=== PATIENT | female | born 1960 | race Hispanic/Latino ===

== ENCOUNTER 2016-05-16 14:21 | Day surgery (SDC) | payer OTHER, MEDICARE ==
[~2016-05-16] VITALS: Ht 142.2 cm; Wt 52.6 kg
[~2016-05-16 14:21] MED LIST: ACTOS15 MG PO; AMLODIPINE BESYL5 MG PO; AMLODIPINE5 MG PO; AMOXICILLIN500 MG OR; ANTI-FUNGAL12 TOP; ASPIRIN LOW DOS81 M2 PO; ATENOLOL25 MG PO; BACLOFEN10 MG PO; CIPR1 OR; CIPRO500 MG OR; CIPROFLOXACN0.3 % OD; CIPROFLOXACN500 MG PO; CLEOCIN300 MG OR; CORTISPORIN OP7.5 ML OD; DIABETA5 MG PO; DILAUDID2 MG PO; FIORICET PO; GENTAMICIN SULF5 ML OD; GLUCOTROL EXTE2.5 M1 PO; GLYBURIDE5 MG PO; HYDROCHLOROT12.5 MG PO; LANTUS SOLOSTAR SC; LEVAQUIN500 MG PO; LISINOPRIL10 MG PO; LISINOPRIL5 MG PO; LORTAB 10 OR; LORTAB 5 OR; LOSARTAN POT50 MG PO; Levaquin PO; METFORMIN1000 MG PO; NAPROXEN SOD550 MG OR; OCUFLOX0.3 % OP; OMEPRAZOLE20 MG PO; ONDANSETRON4 MG PO; PHENERGAN25 M1 PR; PHENERGAN25 MG/TAB PO; POLYSPORIN3.5 GM OP; ROBITUSSIN AC10 ML PO; SIMVASTATIN20 MG PO; SYSTANE OP; TRAMADOL HCL50 MG PO; ULTRAM50 M1 PO; ZITHROMAX250 MG PO; ZOFRAN ODT4 MG SL; ZOFRAN4 MG/TAB PO; [UNRECOGNIZED DRUG - CODE] OP
[2016-05-16 17:40] VITALS: BP 186/73
== END 2016-05-16 17:30 | disposition home or self-care (01) | DRG 395 ==
LOC: ENDO 14:21
PROVIDERS: ATTEND Internal Medicine Gastroenterology
PROC: 0DJD8ZZ Inspection of Lower Intestinal Tract, Via Natural or Artificial Opening Endoscopic (ICD-10-PCS; principal; 2016-05-16)
DX: K64.4 Residual hemorrhoidal skin tags (principal); I10 Essential (primary) hypertension; K64.8 Other hemorrhoids; R11.2 Nausea with vomiting, unspecified; K21.9 Gastro-esophageal reflux disease without esophagitis; R10.13 Epigastric pain; E11.9 Type 2 diabetes mellitus without complications; E78.00 Pure hypercholesterolemia, unspecified

== ENCOUNTER 2017-12-21 19:53 | Emergency (ER) | payer BC, MEDICARE ==
[~2017-12-21] VITALS: Ht 142.2 cm; Wt 51.6 kg
[2017-12-21 21:01] LABS: HEMOGLOBIN 12.4 g/dl (12.0-16.0); IMMATURE GRANULOCYTES 0.3 % (0.0-5.0); MEAN CORPUSCULAR HGB 30.3 pG CALC (26.0-32.0); MEAN CORPUSCULAR HGB CONC 34.4 g/L CALC (32.0-36.0); NEUT# 7.91 thou/uL (2.00-7.15); RED BLOOD COUNT 4.09 mill/uL (4.20-5.60); RED CELL DISTRI WIDTH 12.8 % (11.5-15.5)
[2017-12-21 21:16] LABS: ALBUMIN 3.7 g/dL (3.2-5.0); BILIRUBIN, TOTAL 0.4 mg/dL (0.0-1.4); CREATININE 1.8 mg/dL (0.5-1.0); TOTAL PROTEIN 7.3 g/dL (6.3-8.2)
[2017-12-21 21:20] LABS: POTASSIUM 4.4 mmol/l (3.5-5.1)
[2017-12-21 21:39] LABS: AMYLASE 98 u/l (30-110); LIPASE 83 u/l (23-300)
[2017-12-21] MEDS ORDERED: ZOFRAN ODT4 MG PO (21:41)
[2017-12-21] MEDS ORDERED: CLEOCIN300 MG PO (21:41)
[2017-12-21] MEDS ORDERED: LORTAB 1010 MG PO (21:41)
[2017-12-21 22:11] VITALS: BP 178/90
== END 2017-12-21 22:11 | disposition home or self-care (01) | DRG 159 ==
LOC: ED 19:53
PROVIDERS: Emergency Medicine
DX: K04.7 Periapical abscess without sinus (principal); K08.89 Other specified disorders of teeth and supporting structures; R22.0 Localized swelling, mass and lump, head

== ENCOUNTER 2018-01-10 15:32 | Emergency (ER) | payer MEDICARE, BC ==
[~2018-01-10] VITALS: Ht 142.2 cm; Wt 52.3 kg
[~2018-01-10 15:32] MED LIST changes: +CLEOCIN300 MG PO; +LORTAB 1010 MG PO; +ZOFRAN ODT4 MG PO
[2018-01-10] MEDS ORDERED: OMEPRAZOLE10 MG PO (15:49)
[2018-01-10] MEDS ORDERED: FIORICET PO (15:50)
[2018-01-10] MEDS ORDERED: RANITIDINE150 M1 PO (15:51)
[2018-01-10] MEDS ORDERED: LOSARTAN POT50 MG PO (15:51)
[2018-01-10] MEDS ORDERED: LEVOTHYROXIN75 MCG PO (15:52)
[2018-01-10] MEDS ORDERED: TOBRADEX 2.5 ML OP (15:53)
[2018-01-10] MEDS ORDERED: INSULIN (15:54)
[2018-01-10 16:50] LABS: URINE BILIRUBIN - DIPSTICK NEGATIVE (NEGATIVE); URINE BLOOD DIPSTICK LARGE (NEGATIVE); URINE COLOR YELLOW; URINE GLUCOSE - DIPSTICK 100 mg/dL (NEGATIVE); URINE KETONE NEGATIVE (NEGATIVE); URINE NITRITE - DIPSTICK NEGATIVE (Negative); URINE PROTEIN - DIPSTICK >=300 mg/dL (NEG-TRACE); URINE SPECIFIC GRAVITY 1.025; URINE UROBILINOGEN - DIPSTICK 0.2 E.U./dL (0.2)
[2018-01-10 16:51] LABS: HEMATOCRIT 38.2 % (37.0-47.0); HEMOGLOBIN 13.5 g/dl (12.0-16.0); IMMATURE GRANULOCYTES 0.4 % (0.0-5.0); MEAN CELL VOLUME 86.6 fL CALC (80.0-100.0); MEAN CORPUSCULAR HGB 30.6 pG CALC (26.0-32.0); MEAN CORPUSCULAR HGB CONC 35.3 g/L CALC (32.0-36.0); NEUT# 9.55 thou/uL (2.00-7.15); RED BLOOD COUNT 4.41 mill/uL (4.20-5.60); RED CELL DISTRI WIDTH 13.2 % (11.5-15.5)
[2018-01-10 16:53] LABS: URINE CLARITY TURBID; URINE LEUK ESTERASE SMALL (NEGATIVE)
[2018-01-10 16:59] LABS: ALKALINE PHOSPHATASE 129 u/l (38-126); ANION GAP 15 (6-22 (CALC)); BILIRUBIN, TOTAL 0.7 mg/dL (0.0-1.4); BUN 31 mg/dL (7-17); BUN/CREATININE RATIO 17 (12-20 (CALC)); CARBON DIOXIDE 20 mmol/l (22-30); CHLORIDE 103 mmol/l (95-108); CREATININE 1.8 mg/dL (0.5-1.0); GFR 29 ML/MIN (>=60 (CALC)); GFR FOR AFR.AMER. 35 ML/MIN (>=60 (CALC)); LIPASE 211 u/l (23-300); POTASSIUM 4.5 mmol/l (3.5-5.1); SGOT/AST 36 u/l (14-36); SODIUM 134 mmol/l (137-146); TOTAL PROTEIN 8.2 g/dL (6.3-8.2)
[2018-01-10 17:08] LABS: URINE RBC TNTC RBC/hpf (0-5)
[2018-01-10 17:09] LABS: URINE BACTERIA MANY hpf
[2018-01-10 19:13] VITALS: BP 184/79
[2018-01-10] MEDS ORDERED: KEFLEX500 M1 PO (19:22)
== END 2018-01-10 19:36 | disposition home or self-care (01) ==
LOC: ED 15:32
PROVIDERS: Emergency Medicine
DX: N39.0 Urinary tract infection, site not specified (principal); B96.20 Unspecified Escherichia coli [E. coli] as the cause of diseases classified elsewhere; R10.13 Epigastric pain; I10 Essential (primary) hypertension; E11.9 Type 2 diabetes mellitus without complications; K21.9 Gastro-esophageal reflux disease without esophagitis; G51.0 Bell's palsy; H54.40 Blindness, one eye, unspecified eye

== ENCOUNTER 2019-04-14 | Emergency (ER) | payer OTHER, MEDICARE ==
[~2019-04-14] MED LIST changes: +CLONIDINE0.1 MG PO; +ERGOCALCIF50000 UNIT PO; +INSULIN; +KEFLEX500 M1 PO; +LEVOTHYROXIN75 MCG PO; +LIPITOR20 MG PO; +NIFEDIPINE ER90 M1 PO; +OMEPRAZOLE10 MG PO; +RANITIDINE150 M1 PO; +SODIUM BICARBI650 MG PO; +TOBRADEX 2.5 ML OP
[2019-04-14 19:50] LABS: HEMATOCRIT 27.9 % (37.0-47.0); HEMOGLOBIN 9.2 g/dl (12.0-16.0); IMMATURE GRANULOCYTES 0.5 % (0.0-5.0); MEAN CELL VOLUME 84.3 fL CALC (80.0-100.0); MEAN CORPUSCULAR HGB 27.8 pG CALC (26.0-32.0); NEUT# 7.01 thou/uL (2.00-7.15); RED BLOOD COUNT 3.31 mill/uL (4.20-5.60); RED CELL DISTRI WIDTH 13.8 % (11.5-15.5)
[2019-04-14 20:04] LABS: ALBUMIN 3.7 g/dL (3.2-5.0); ALKALINE PHOSPHATASE 172 u/l (38-126); AMYLASE 83 u/l (30-110); ANION GAP 16 (6-22 (CALC)); BUN 38 mg/dL (7-17); CARBON DIOXIDE 20 mmol/l (22-30); CHLORIDE 105 mmol/l (95-108); LIPASE 81 u/l (23-300); POTASSIUM 4.6 mmol/l (3.5-5.1); SGOT/AST 40 u/l (14-36); SODIUM 137 mmol/l (137-146); TOTAL PROTEIN 7.5 g/dL (6.3-8.2)
[2019-04-14 20:08] LABS: BILIRUBIN, TOTAL 0.3 mg/dL (0.0-1.4); BUN/CREATININE RATIO 5 (12-20 (CALC)); GFR 6 ML/MIN (>=60 (CALC)); GFR FOR AFR.AMER. 7 ML/MIN (>=60 (CALC))
[2019-04-14 20:13] LABS: MYOGLOBIN 221 ng/mL (0 - 62)
[2019-04-14 22:17] LABS: URINE BILIRUBIN - DIPSTICK NEGATIVE (NEGATIVE); URINE BLOOD DIPSTICK SMALL (NEGATIVE); URINE CLARITY CLEAR; URINE COLOR YELLOW; URINE GLUCOSE - DIPSTICK 250 mg/dL (NEGATIVE); URINE KETONE NEGATIVE (NEGATIVE); URINE LEUK ESTERASE NEGATIVE (Negative); URINE NITRITE - DIPSTICK NEGATIVE (Negative); URINE PROTEIN - DIPSTICK >=300 mg/dL (NEG-TRACE); URINE SPECIFIC GRAVITY 1.025; URINE UROBILINOGEN - DIPSTICK 0.2 E.U./dL (0.2)
[2019-04-14 22:20] LABS: URINE SQUAMOUS EPITHELIAL CELL FEW EPI/hpf (0-FEW); URINE WBC 0-2 WBC/hpf (0-5)
== END 2019-04-15 05:05 | DRG 684 ==
PROVIDERS: Emergency Medicine
DX: N17.9 Acute kidney failure, unspecified (principal); I16.0 Hypertensive urgency; I12.9 Hypertensive chronic kidney disease with stage 1 through stage 4 chronic kidney disease, or unspecified chronic kidney disease; N18.9 Chronic kidney disease, unspecified; R11.10 Vomiting, unspecified; E11.9 Type 2 diabetes mellitus without complications; G51.0 Bell's palsy; Z79.4 Long term (current) use of insulin

== ENCOUNTER 2019-05-29 | Emergency (ER) | payer OTHER, MEDICARE ==
[2019-05-29] MEDS ORDERED: PROTONIX40 MG PO (15:07)
[2019-05-29] MEDS ORDERED: METOPROL TAR25 MG PO (15:07)
[2019-05-29] MEDS ORDERED: LASIX 40 MG TAB40 MG PO (15:08)
[2019-05-29 15:43] LABS: IMMATURE GRANULOCYTES 0.2 % (0.0-5.0); MEAN CELL VOLUME 88.5 fL CALC (80.0-100.0); MEAN CORPUSCULAR HGB 29.2 pG CALC (26.0-32.0); NEUT# 7.61 thou/uL (2.00-7.15); RED BLOOD COUNT 4.08 mill/uL (4.20-5.60); RED CELL DISTRI WIDTH 15.7 % (11.5-15.5)
[2019-05-29 15:46] LABS: HEMATOCRIT 36.1 % (37.0-47.0); HEMOGLOBIN 11.9 g/dl (12.0-16.0)
[2019-05-29 15:56] LABS: ACT PARTIAL THROMBO TIME 26.1 SECONDS (20.0-32.5); INTERNATIONAL NORMALIZED RATIO 0.9 RATIO (0.7-1.3); PROTHROMBIN TIME 9.6 SECONDS (9.0-12.5)
[2019-05-29 16:06] LABS: ALBUMIN 2.9 g/dL (3.2-5.0); BILIRUBIN, TOTAL 0.6 mg/dL (0.0-1.4); POTASSIUM 5.8 mmol/l (3.5-5.1)
--- NOTE | 2019-05-31 12:45 | NUR ---
Covid results faxed to [phone].
== END 2019-05-29 19:25 | DRG 640 ==
PROVIDERS: Emergency Medicine
DX: E87.5 Hyperkalemia (principal); N18.6 End stage renal disease; I12.0 Hypertensive chronic kidney disease with stage 5 chronic kidney disease or end stage renal disease; I69.951 Hemiplegia and hemiparesis following unspecified cerebrovascular disease affecting right dominant side; E87.1 Hypo-osmolality and hyponatremia; R11.10 Vomiting, unspecified; E11.22 Type 2 diabetes mellitus with diabetic chronic kidney disease; Z99.2 Dependence on renal dialysis; H54.61 Unqualified visual loss, right eye, normal vision left eye; Z20.828 Contact with and (suspected) exposure to other viral communicable diseases
CPT/HCPCS: J1956

== ENCOUNTER 2019-06-17 | Emergency (ER) | payer OTHER, MEDICARE ==
[~2019-06-17] MED LIST changes: +LASIX 40 MG TAB40 MG PO; +METOPROL TAR25 MG PO; +PROTONIX40 MG PO
[2019-06-17] MEDS ORDERED: CLONIDINE0.2 MG PO (07:21)
[2019-06-17 07:24] LABS: HEMATOCRIT 41.9 % (37.0-47.0); HEMOGLOBIN 13.7 g/dl (12.0-16.0); IMMATURE GRANULOCYTES 0.3 % (0.0-5.0); MEAN CELL VOLUME 91.3 fL CALC (80.0-100.0); MEAN CORPUSCULAR HGB 29.8 pG CALC (26.0-32.0); MEAN CORPUSCULAR HGB CONC 32.7 g/dL CAL (32.0-36.0); NEUT# 7.01 thou/uL (2.00-7.15); RED BLOOD COUNT 4.59 mill/uL (4.20-5.60); RED CELL DISTRI WIDTH 15.5 % (11.5-15.5)
[2019-06-17] MEDS ORDERED: NOVOLIN N100 UNIT/1 IN (07:25)
[2019-06-17] MEDS ORDERED: TRAMADOL HYDROC50 M1 PO (07:27)
[2019-06-17 07:35] LABS: BILIRUBIN, TOTAL 0.5 mg/dL (0.0-1.4); CREATININE 4.2 mg/dL (0.5-1.0)
[2019-06-17 07:38] LABS: ALBUMIN 3.7 g/dL (3.2-5.0); POTASSIUM 5.6 mmol/l (3.5-5.1)
== END 2019-06-17 08:53 | DRG 291 ==
DX: I13.2 Hypertensive heart and chronic kidney disease with heart failure and with stage 5 chronic kidney disease, or end stage renal disease (principal); N18.6 End stage renal disease; N17.9 Acute kidney failure, unspecified; E11.22 Type 2 diabetes mellitus with diabetic chronic kidney disease; I50.9 Heart failure, unspecified; I16.0 Hypertensive urgency; R07.9 Chest pain, unspecified; Z99.2 Dependence on renal dialysis; Z79.4 Long term (current) use of insulin

== ENCOUNTER 2019-07-03 00:53 | Emergency (ER) | payer OTHER, MEDICARE ==
[~2019-07-03 00:53] MED LIST changes: +CLONIDINE0.2 MG PO; +NOVOLIN N100 UNIT/1 IN; +TRAMADOL HYDROC50 M1 PO
[2019-07-03 01:45] LABS: HEMATOCRIT 40.6 % (37.0-47.0); IMMATURE GRANULOCYTES 0.2 % (0.0-5.0); MEAN CORPUSCULAR HGB 28.8 pG CALC (26.0-32.0); NEUT# 5.6 thou/uL (2.00-7.15); RED BLOOD COUNT 4.51 mill/uL (4.20-5.60); RED CELL DISTRI WIDTH 14.1 % (11.5-15.5)
[2019-07-03 01:55] LABS: ALBUMIN 3.7 g/dL (3.2-5.0); BILIRUBIN, TOTAL 0.5 mg/dL (0.0-1.4); CREATININE 3.9 mg/dL (0.5-1.0); POTASSIUM 4.8 mmol/l (3.5-5.1); TOTAL PROTEIN 7.1 g/dL (6.3-8.2)
[2019-07-03 06:25] VITALS: BP 166/72
== END 2019-07-03 06:25 | DRG 683 ==
LOC: ED 00:53
PROVIDERS: Family Medicine
DX: N17.9 Acute kidney failure, unspecified (principal); I12.0 Hypertensive chronic kidney disease with stage 5 chronic kidney disease or end stage renal disease; E11.22 Type 2 diabetes mellitus with diabetic chronic kidney disease; N18.6 End stage renal disease; Z99.2 Dependence on renal dialysis; Z79.4 Long term (current) use of insulin

== ENCOUNTER 2019-07-13 00:18 | Emergency (ER) | payer OTHER, MEDICARE ==
[2019-07-13 01:12] LABS: HEMATOCRIT 40.8 % (37.0-47.0); HEMOGLOBIN 13.2 g/dl (12.0-16.0); IMMATURE GRANULOCYTES 0.3 % (0.0-5.0); MEAN CELL VOLUME 90.1 fL CALC (80.0-100.0); MEAN CORPUSCULAR HGB 29.1 pG CALC (26.0-32.0); MEAN CORPUSCULAR HGB CONC 32.4 g/dL CAL (32.0-36.0); NEUT# 4.78 thou/uL (2.00-7.15); RED BLOOD COUNT 4.53 mill/uL (4.20-5.60); RED CELL DISTRI WIDTH 13.9 % (11.5-15.5)
[2019-07-13 01:18] LABS: URINE BILIRUBIN - DIPSTICK NEGATIVE (NEGATIVE); URINE BLOOD DIPSTICK LARGE (NEGATIVE); URINE COLOR YELLOW; URINE GLUCOSE - DIPSTICK 250 mg/dL (NEGATIVE); URINE KETONE NEGATIVE (NEGATIVE); URINE NITRITE - DIPSTICK NEGATIVE (Negative); URINE PROTEIN - DIPSTICK >=300 mg/dL (NEG-TRACE); URINE UROBILINOGEN - DIPSTICK 0.2 E.U./dL (0.2)
[2019-07-13 01:27] LABS: ALBUMIN 4.2 g/dL (3.2-5.0); BILIRUBIN, TOTAL 0.7 mg/dL (0.0-1.4); CREATININE 4.8 mg/dL (0.5-1.0); POTASSIUM 4.9 mmol/l (3.5-5.1); TOTAL PROTEIN 7.7 g/dL (6.3-8.2)
[2019-07-13 01:33] LABS: URINE LEUK ESTERASE NEGATIVE (NEGATIVE)
[2019-07-13 01:35] LABS: URINE BACTERIA MODERATE hpf; URINE EPITHELIAL CELLS FEW EPI/hpf (0-FEW)
[2019-07-13 03:55] VITALS: BP 132/71
== END 2019-07-13 03:55 | DRG 193 ==
LOC: ED 00:18
PROVIDERS: Emergency Medicine
DX: J18.9 Pneumonia, unspecified organism (principal); N18.6 End stage renal disease; N39.0 Urinary tract infection, site not specified; I12.0 Hypertensive chronic kidney disease with stage 5 chronic kidney disease or end stage renal disease; E11.22 Type 2 diabetes mellitus with diabetic chronic kidney disease; G51.0 Bell's palsy; Z99.2 Dependence on renal dialysis; Z79.4 Long term (current) use of insulin; Z20.828 Contact with and (suspected) exposure to other viral communicable diseases

== ENCOUNTER 2019-09-24 03:37 | Emergency (ER) | payer OTHER, MEDICARE ==
[~2019-09-24] VITALS: Ht 142.2 cm; Wt 50.0 kg
[2019-09-24 04:20] LABS: IMMATURE GRANULOCYTES 0.2 % (0.0-5.0); MEAN CELL VOLUME 91.3 fL CALC (80.0-100.0); MEAN CORPUSCULAR HGB 28.1 pG CALC (26.0-32.0); MEAN CORPUSCULAR HGB CONC 30.8 g/dL CAL (32.0-36.0); NEUT# 6.54 thou/uL (2.00-7.15); RED BLOOD COUNT 3.45 mill/uL (4.20-5.60)
[2019-09-24 04:21] LABS: HEMATOCRIT 31.5 % (37.0-47.0); HEMOGLOBIN 9.7 g/dl (12.0-16.0)
[2019-09-24 04:35] LABS: POTASSIUM 4.8 mmol/l (3.5-5.1); TOTAL PROTEIN 7.5 g/dL (6.3-8.2)
[2019-09-24 04:43] LABS: BILIRUBIN, TOTAL 0.4 mg/dL (0.0-1.4); CREATININE 5.2 mg/dL (0.5-1.0)
[2019-09-24 05:13] VITALS: BP 208/102
== END 2019-09-24 05:34 | disposition home or self-care (01) | DRG 189 ==
LOC: ED 03:37
PROVIDERS: Family Medicine
DX: J81.1 Chronic pulmonary edema (principal); U07.1 COVID-19; N18.6 End stage renal disease; I12.0 Hypertensive chronic kidney disease with stage 5 chronic kidney disease or end stage renal disease; E11.22 Type 2 diabetes mellitus with diabetic chronic kidney disease; Z99.2 Dependence on renal dialysis; Z79.4 Long term (current) use of insulin; Z91.11 Patient's noncompliance with dietary regimen

== ENCOUNTER 2019-11-19 02:03 | Emergency (ER) | payer OTHER, MEDICARE ==
[~2019-11-19] VITALS: Ht 142.2 cm; Wt 60.0 kg
[2019-11-19 02:40] LABS: IMMATURE GRANULOCYTES 0.1 % (0.0-5.0); MEAN CELL VOLUME 91.4 fL CALC (80.0-100.0); MEAN CORPUSCULAR HGB 29.6 pG CALC (26.0-32.0); MEAN CORPUSCULAR HGB CONC 32.4 g/dL CAL (32.0-36.0); NEUT# 3.68 thou/uL (2.00-7.15); RED BLOOD COUNT 4.53 mill/uL (4.20-5.60); RED CELL DISTRI WIDTH 14.9 % (11.5-15.5)
[2019-11-19 02:41] LABS: HEMATOCRIT 41.4 % (37.0-47.0); HEMOGLOBIN 13.4 g/dl (12.0-16.0)
[2019-11-19 03:07] VITALS: BP 177/84
[2019-11-19 03:37] LABS: ALBUMIN 4.1 g/dL (3.2-5.0); BILIRUBIN, TOTAL 0.4 mg/dL (0.0-1.4); TOTAL PROTEIN 7.4 g/dL (6.3-8.2)
[2019-11-19 03:42] LABS: POTASSIUM 5.7 mmol/l (3.5-5.1)
[2019-11-19 03:43] LABS: CREATININE 5.8 mg/dL (0.5-1.0)
[2019-11-19 03:45] LABS: URINE BILIRUBIN - DIPSTICK NEGATIVE (NEGATIVE); URINE BLOOD DIPSTICK SMALL (NEGATIVE); URINE COLOR YELLOW; URINE GLUCOSE - DIPSTICK 500 mg/dL (NEGATIVE); URINE KETONE NEGATIVE (NEGATIVE); URINE LEUK ESTERASE NEGATIVE (NEGATIVE); URINE NITRITE - DIPSTICK NEGATIVE (Negative); URINE PROTEIN - DIPSTICK >=300 mg/dL (NEG-TRACE); URINE UROBILINOGEN - DIPSTICK 0.2 E.U./dL (0.2)
[2019-11-19 03:59] LABS: URINE BACTERIA FEW hpf; URINE SQUAMOUS EPITHELIAL CELL MANY EPI/hpf (0-FEW)
== END 2019-11-19 04:10 | disposition home or self-care (01) | DRG 189 ==
LOC: ED 02:03
PROVIDERS: Family Medicine
DX: J81.1 Chronic pulmonary edema (principal); N18.6 End stage renal disease; I12.0 Hypertensive chronic kidney disease with stage 5 chronic kidney disease or end stage renal disease; E11.22 Type 2 diabetes mellitus with diabetic chronic kidney disease; Z99.2 Dependence on renal dialysis; K21.9 Gastro-esophageal reflux disease without esophagitis; G51.0 Bell's palsy

== ENCOUNTER 2019-12-19 16:23 | Emergency (ER) | payer OTHER, MEDICARE ==
[~2019-12-19] VITALS: Ht 142.2 cm; Wt 52.3 kg
[2019-12-19] MEDS ORDERED: CLONIDINE0.1 MG PO (16:57)
[2019-12-19] MEDS ORDERED: FUROSEMIDE20 MG PO (16:57)
[2019-12-19] MEDS ORDERED: NIFEDIPINE60 MG PO (16:58)
[2019-12-19] MEDS ORDERED: ATORVASTATIN CA20 MG PO (16:59)
[2019-12-19] MEDS ORDERED: BUTALBITAL/ACET1 CA1 PO (16:59)
[2019-12-19] MEDS ORDERED: PROTONIX40 M2 PO (17:00)
[2019-12-19] MEDS ORDERED: LEVOTHYROXIN75 MCG PO (17:00)
[2019-12-19] MEDS ORDERED: METOPROL TAR25 MG PO (17:01)
[2019-12-19 17:24] LABS: HEMATOCRIT 37.2 % (37.0-47.0); IMMATURE GRANULOCYTES 0.3 % (0.0-5.0); MEAN CELL VOLUME 91.2 fL CALC (80.0-100.0); MEAN CORPUSCULAR HGB 29.4 pG CALC (26.0-32.0); MEAN CORPUSCULAR HGB CONC 32.3 g/dL CAL (32.0-36.0); NEUT# 7.03 thou/uL (2.00-7.15); RED BLOOD COUNT 4.08 mill/uL (4.20-5.60)
[2019-12-19 17:40] LABS: ALBUMIN 4.4 g/dL (3.2-5.0); BILIRUBIN, TOTAL 0.4 mg/dL (0.0-1.4); TOTAL PROTEIN 7.8 g/dL (6.3-8.2)
[2019-12-19 18:04] LABS: CREATININE 8.2 mg/dL (0.5-1.0); POTASSIUM 6.3 mmol/l (3.5-5.1)
[2019-12-19 20:15] VITALS: BP 117/58
== END 2019-12-19 20:15 | DRG 640 ==
LOC: ED 16:23
DX: E87.5 Hyperkalemia (principal); N18.6 End stage renal disease; I12.0 Hypertensive chronic kidney disease with stage 5 chronic kidney disease or end stage renal disease; E11.22 Type 2 diabetes mellitus with diabetic chronic kidney disease; Z99.2 Dependence on renal dialysis; K21.9 Gastro-esophageal reflux disease without esophagitis

== ENCOUNTER 2020-01-17 00:47 | Emergency (ER) | payer OTHER, MEDICARE ==
[~2020-01-17] VITALS: Ht 142.2 cm; Wt 54.0 kg
[~2020-01-17 00:47] MED LIST changes: +ATORVASTATIN CA20 MG PO; +BUTALBITAL/ACET1 CA1 PO; +FUROSEMIDE20 MG PO; +NIFEDIPINE60 MG PO; +PROTONIX40 M2 PO
[2020-01-17 01:31] LABS: HEMATOCRIT 33.3 % (37.0-47.0); HEMOGLOBIN 11.2 g/dl (12.0-16.0); IMMATURE GRANULOCYTES 0.3 % (0.0-5.0); MEAN CELL VOLUME 87.6 fL CALC (80.0-100.0); MEAN CORPUSCULAR HGB 29.5 pG CALC (26.0-32.0); MEAN CORPUSCULAR HGB CONC 33.6 g/dL CAL (32.0-36.0); NEUT# 7.58 thou/uL (2.00-7.15); RED BLOOD COUNT 3.8 mill/uL (4.20-5.60); RED CELL DISTRI WIDTH 13.4 % (11.5-15.5)
[2020-01-17 01:48] LABS: ALBUMIN 4.6 g/dL (3.2-5.0); BILIRUBIN, TOTAL 0.5 mg/dL (0.0-1.4); TOTAL PROTEIN 8.3 g/dL (6.3-8.2)
[2020-01-17 01:59] LABS: CREATININE 7.2 mg/dL (0.5-1.0)
[2020-01-17 02:00] LABS: POTASSIUM 6.2 mmol/l (3.5-5.1)
--- NOTE | 2020-01-17 02:27 | NUR ---
BREATHING TREATMENT GIVEN ORDERED
[2020-01-17] MEDS ORDERED: ZITHROMAX250 MG PO (05:11)
[2020-01-17] MEDS ORDERED: ONDANSETRON4 MG PO (05:11)
[2020-01-17 05:50] VITALS: BP 149/83
== END 2020-01-17 05:50 | disposition home or self-care (01) | DRG 391 ==
LOC: ED 00:47
PROVIDERS: Emergency Medicine
DX: R11.2 Nausea with vomiting, unspecified (principal); J18.9 Pneumonia, unspecified organism; E87.5 Hyperkalemia; I16.0 Hypertensive urgency; I12.0 Hypertensive chronic kidney disease with stage 5 chronic kidney disease or end stage renal disease; E11.22 Type 2 diabetes mellitus with diabetic chronic kidney disease; N18.6 End stage renal disease; K21.9 Gastro-esophageal reflux disease without esophagitis; G51.0 Bell's palsy; Z99.2 Dependence on renal dialysis; Z20.828 Contact with and (suspected) exposure to other viral communicable diseases

== ENCOUNTER 2020-07-30 15:18 | Emergency (ER) | payer OTHER, MEDICARE ==
[~2020-07-30] VITALS: Ht 142.2 cm; Wt 59.0 kg
[2020-07-30] MEDS ORDERED: ASPIRIN 81 LOW81 MG PO (15:43)
[2020-07-30 15:53] LABS: HEMATOCRIT 32.7 % (37.0-47.0); HEMOGLOBIN 11.1 g/dl (12.0-16.0); IMMATURE GRANULOCYTES 0.1 % (0.0-5.0); MEAN CELL VOLUME 91.1 fL CALC (80.0-100.0); MEAN CORPUSCULAR HGB 30.9 pG CALC (26.0-32.0); MEAN CORPUSCULAR HGB CONC 33.9 g/dL CAL (32.0-36.0); NEUT# 7.64 thou/uL (2.00-7.15); RED BLOOD COUNT 3.59 mill/uL (4.20-5.60); RED CELL DISTRI WIDTH 13.2 % (11.5-15.5)
[2020-07-30 16:11] LABS: ALBUMIN 4.7 g/dL (3.2-5.0); BILIRUBIN, TOTAL 0.5 mg/dL (0.0-1.4); TOTAL PROTEIN 8.8 g/dL (6.3-8.2)
[2020-07-30 16:18] LABS: CREATININE 7.7 mg/dL (0.5-1.0); POTASSIUM 7.6 mmol/l (3.5-5.1)
[2020-07-30 18:00] VITALS: BP 118/57
== END 2020-07-30 18:25 | DRG 684 ==
LOC: ED 15:18
DX: N18.6 End stage renal disease (principal); E87.5 Hyperkalemia; R06.02 Shortness of breath; I12.0 Hypertensive chronic kidney disease with stage 5 chronic kidney disease or end stage renal disease; N17.9 Acute kidney failure, unspecified; E11.22 Type 2 diabetes mellitus with diabetic chronic kidney disease; K21.9 Gastro-esophageal reflux disease without esophagitis; Z99.2 Dependence on renal dialysis; Z20.822 Contact with and (suspected) exposure to COVID-19

== ENCOUNTER 2021-01-21 09:06 | Emergency (ER) | payer OTHER, MEDICARE ==
[~2021-01-21] VITALS: Ht 142.2 cm; Wt 50.0 kg
[~2021-01-21 09:06] MED LIST changes: +ASPIRIN 81 LOW81 MG PO
[2021-01-21 10:14] LABS: HEMATOCRIT 37.3 % (37.0-47.0); HEMOGLOBIN 12.2 g/dl (12.0-16.0); IMMATURE GRANULOCYTES 0.1 % (0.0-5.0); MEAN CELL VOLUME 95.2 fL CALC (80.0-100.0); MEAN CORPUSCULAR HGB 31.1 pG CALC (26.0-32.0); MEAN CORPUSCULAR HGB CONC 32.7 g/dL CAL (32.0-36.0); NEUT# 8.65 thou/uL (2.00-7.15); RED BLOOD COUNT 3.92 mill/uL (4.20-5.60); RED CELL DISTRI WIDTH 13.1 % (11.5-15.5)
[2021-01-21 10:28] LABS: ALBUMIN 4.4 g/dL (3.2-5.0); ALKALINE PHOSPHATASE 224 u/l (38-126); ANION GAP 20 (6-22 (CALC)); BILIRUBIN, TOTAL 0.6 mg/dL (0.0-1.4); BUN 32 mg/dL (7-17); CARBON DIOXIDE 28 mmol/l (22-30); CHLORIDE 94 mmol/l (95-108); SGOT/AST 28 u/l (14-36); SODIUM 137 mmol/l (137-146); TOTAL PROTEIN 8.5 g/dL (6.3-8.2)
[2021-01-21 10:29] LABS: BUN/CREATININE RATIO 4 (12-20 (CALC)); CREATININE 7.2 mg/dL (0.5-1.0); GFR 6 ML/MIN (>=60 (CALC)); GFR FOR AFR.AMER. 7 ML/MIN (>=60 (CALC)); POTASSIUM 5.2 mmol/l (3.5-5.1)
[2021-01-21] MEDS ORDERED: ZPAK PO (12:49)
[2021-01-21 13:20] VITALS: BP 196/91
== END 2021-01-21 13:20 | disposition left against medical advice (07) | DRG 291 ==
LOC: ED 09:06
PROVIDERS: Family Medicine
PROC: 06JYXZZ Inspection of Lower Vein, External Approach (ICD-10-PCS; principal; 2021-01-21)
PROC: 05JYXZZ Inspection of Upper Vein, External Approach (ICD-10-PCS; 2021-01-21)
DX: I13.2 Hypertensive heart and chronic kidney disease with heart failure and with stage 5 chronic kidney disease, or end stage renal disease (principal); N18.6 End stage renal disease; I50.9 Heart failure, unspecified; E11.22 Type 2 diabetes mellitus with diabetic chronic kidney disease; K21.9 Gastro-esophageal reflux disease without esophagitis; Z91.19 Patient's noncompliance with other medical treatment and regimen; Z99.2 Dependence on renal dialysis; Z20.822 Contact with and (suspected) exposure to COVID-19

== ENCOUNTER 2021-04-06 00:48 | Emergency (ER) | payer OTHER, MEDICARE ==
[~2021-04-06] VITALS: Ht 142.2 cm; Wt 53.0 kg
[~2021-04-06 00:48] MED LIST changes: +ASPIRIN81 MG PO; +LIPITOR20 M1 PO; +ZITHROMAX500 MG PO; +ZPAK PO
[2021-04-06 01:28] LABS: HEMATOCRIT 31.5 % (37.0-47.0); HEMOGLOBIN 10.3 g/dl (12.0-16.0); MEAN CELL VOLUME 95.2 fL CALC (80.0-100.0); MEAN CORPUSCULAR HGB 31.1 pG CALC (26.0-32.0); MEAN CORPUSCULAR HGB CONC 32.7 g/dL CAL (32.0-36.0); NEUT# 4.38 thou/uL (2.00-7.15); RED BLOOD COUNT 3.31 mill/uL (4.20-5.60); RED CELL DISTRI WIDTH 13.3 % (11.5-15.5)
[2021-04-06] MEDS ORDERED: CLONIDINE0.1 MG PO (01:46)
[2021-04-06 01:54] LABS: ALBUMIN 4.3 g/dL (3.2-5.0); POTASSIUM 4.8 mmol/l (3.5-5.1); TOTAL PROTEIN 7.6 g/dL (6.3-8.2)
[2021-04-06 02:05] LABS: BILIRUBIN, TOTAL 0.3 mg/dL (0.0-1.4); CREATININE 5.3 mg/dL (0.5-1.0)
[2021-04-06 02:50] VITALS: BP 185/79
== END 2021-04-06 03:00 | disposition home or self-care (01) | DRG 189 ==
LOC: ED 00:48
PROVIDERS: Family Medicine
DX: J81.1 Chronic pulmonary edema (principal); N18.6 End stage renal disease; I12.0 Hypertensive chronic kidney disease with stage 5 chronic kidney disease or end stage renal disease; E11.22 Type 2 diabetes mellitus with diabetic chronic kidney disease; K21.9 Gastro-esophageal reflux disease without esophagitis; Z99.2 Dependence on renal dialysis

== ENCOUNTER 2021-11-24 07:58 | Inpatient (IN) | payer OTHER, MEDICARE, BC ==
[~2021-11-24] VITALS: Ht 142.2 cm; Wt 46.8 kg
[2021-11-24] VITALS (29 sets, daily range): BP systolic 161–195; BP diastolic 59–118
[2021-11-24 08:43] LABS: HEMATOCRIT 31.8 % (37.0-47.0); HEMOGLOBIN 10.8 g/dl (12.0-16.0); IMMATURE GRANULOCYTES 0.2 % (0.0-5.0); MEAN CELL VOLUME 93.3 fL CALC (80.0-100.0); MEAN CORPUSCULAR HGB 31.7 pG CALC (26.0-32.0); NEUT# 6.66 thou/uL (2.00-7.15); RED BLOOD COUNT 3.41 mill/uL (4.20-5.60); RED CELL DISTRI WIDTH 12.9 % (11.5-15.5)
[2021-11-24 08:47] LABS: ALBUMIN 4.7 g/dL (3.2-5.0); TOTAL PROTEIN 8.7 g/dL (6.3-8.2)
[2021-11-24 08:49] LABS: BILIRUBIN, TOTAL 0.7 mg/dL (0.0-1.4); CREATININE 4.1 mg/dL (0.5-1.0); POTASSIUM 3.3 mmol/l (3.5-5.1)
[2021-11-25 00:36] VITALS: BP 195/92
[2021-11-25 02:19] VITALS: BP 177/69
[2021-11-25 04:03] VITALS: BP 203/81
[2021-11-25 05:37] LABS: HEMATOCRIT 31.3 % (37.0-47.0); HEMOGLOBIN 10.5 g/dl (12.0-16.0); IMMATURE GRANULOCYTES 0.4 % (0.0-5.0); MEAN CELL VOLUME 95.1 fL CALC (80.0-100.0); MEAN CORPUSCULAR HGB 31.9 pG CALC (26.0-32.0); MEAN CORPUSCULAR HGB CONC 33.5 g/dL CAL (32.0-36.0); NEUT# 14.02 thou/uL (2.00-7.15); RED BLOOD COUNT 3.29 mill/uL (4.20-5.60); RED CELL DISTRI WIDTH 13.3 % (11.5-15.5)
[2021-11-25 05:56] LABS: BILIRUBIN, TOTAL 0.5 mg/dL (0.0-1.4); POTASSIUM 3.8 mmol/l (3.5-5.1); TOTAL PROTEIN 7.1 g/dL (6.3-8.2)
[2021-11-25 06:40] VITALS: BP 203/80
[2021-11-25 10:56] VITALS: BP 208/97
[2021-11-25 16:08] VITALS: BP 139/59
[2021-11-26 00:40] VITALS: BP 163/72
[2021-11-26 04:30] VITALS: BP 172/63
[2021-11-26 05:23] LABS: HEMATOCRIT 27.8 % (37.0-47.0); HEMOGLOBIN 9.2 g/dl (12.0-16.0); IMMATURE GRANULOCYTES 0.6 % (0.0-5.0); MEAN CELL VOLUME 96.2 fL CALC (80.0-100.0); MEAN CORPUSCULAR HGB 31.8 pG CALC (26.0-32.0); MEAN CORPUSCULAR HGB CONC 33.1 g/dL CAL (32.0-36.0); NEUT# 9.39 thou/uL (2.00-7.15); RED BLOOD COUNT 2.89 mill/uL (4.20-5.60); RED CELL DISTRI WIDTH 13.7 % (11.5-15.5)
[2021-11-26 05:47] LABS: ALBUMIN 3.7 g/dL (3.2-5.0); BILIRUBIN, TOTAL 0.5 mg/dL (0.0-1.4); MAGNESIUM 1.7 mg/dL (1.6-2.3); POTASSIUM 4.2 mmol/l (3.5-5.1)
[2021-11-26 05:48] LABS: CREATININE 3.9 mg/dL (0.5-1.0)
[2021-11-26 07:06] VITALS: BP 179/78
[2021-11-26 10:28] VITALS: BP 178/76
[2021-11-26 14:40] VITALS: BP 156/59
[2021-11-27 04:15] VITALS: BP 143/65
[2021-11-27 05:05] LABS: HEMATOCRIT 27.8 % (37.0-47.0); HEMOGLOBIN 9.2 g/dl (12.0-16.0); IMMATURE GRANULOCYTES 0.3 % (0.0-5.0); MEAN CELL VOLUME 97.2 fL CALC (80.0-100.0); MEAN CORPUSCULAR HGB 32.2 pG CALC (26.0-32.0); MEAN CORPUSCULAR HGB CONC 33.1 g/dL CAL (32.0-36.0); NEUT# 6.69 thou/uL (2.00-7.15); RED BLOOD COUNT 2.86 mill/uL (4.20-5.60); RED CELL DISTRI WIDTH 13.4 % (11.5-15.5)
[2021-11-27 05:37] LABS: ALBUMIN 3.8 g/dL (3.2-5.0); ALKALINE PHOSPHATASE 96 u/l (38-126); ANION GAP 16 (6-22 (CALC)); BILIRUBIN, TOTAL 0.6 mg/dL (0.0-1.4); BUN 27 mg/dL (8-23); BUN/CREATININE RATIO 8 (12-20 (CALC)); CARBON DIOXIDE 29 mmol/l (22-30); CHLORIDE 97 mmol/l (95-108); CREATININE 3.5 mg/dL (0.5-1.0); GFR FOR AFR.AMER. 16 ML/MIN (>=60 (CALC)); GFR OTHER RACES 13 ML/MIN (>=60 (CALC)); MAGNESIUM 1.8 mg/dL (1.6-2.3); SGOT/AST 36 u/l (9-36); SODIUM 138 mmol/l (137-146)
[2021-11-27 07:44] VITALS: BP 164/73
[2021-11-27 08:22] VITALS: BP 164/73
[2021-11-27] MEDS ORDERED: OMNICEF300 MG PO (12:41)
[2021-11-27] MEDS ORDERED: ZITHROMAX250 MG PO (12:42)
[2021-11-27] MEDS ORDERED: MEDDOSEPAK PO (12:42)
== END 2021-11-27 13:02 | disposition home or self-care (01) | DRG 291 ==
LOC: ED 07:58 → ED-I 08:51 → ED 08:51 → ED-I 12:50 → ED 14:03 → MS2 14:04
PROVIDERS: Family Medicine; Nurse Practitioner; ADMIT Internal Medicine; ATTEND Internal Medicine
PROC: 5A1D70Z Performance of Urinary Filtration, Intermittent, Less than 6 Hours Per Day (ICD-10-PCS; principal; 2021-11-25)
PROC: 5A1D70Z Performance of Urinary Filtration, Intermittent, Less than 6 Hours Per Day (ICD-10-PCS; 2021-11-26)
DX: I13.2 Hypertensive heart and chronic kidney disease with heart failure and with stage 5 chronic kidney disease, or end stage renal disease (principal); J96.01 Acute respiratory failure with hypoxia; N18.6 End stage renal disease; E87.3 Alkalosis; N25.81 Secondary hyperparathyroidism of renal origin; I50.9 Heart failure, unspecified; E11.22 Type 2 diabetes mellitus with diabetic chronic kidney disease; Z99.2 Dependence on renal dialysis; J40 Bronchitis, not specified as acute or chronic; E11.65 Type 2 diabetes mellitus with hyperglycemia; K21.9 Gastro-esophageal reflux disease without esophagitis; I69.30 Unspecified sequelae of cerebral infarction; D63.1 Anemia in chronic kidney disease
CPT/HCPCS: J1644; Q5106 EC

== ENCOUNTER 2021-12-02 21:57 | Emergency (ER) | payer OTHER, MEDICARE, BC ==
[~2021-12-02] VITALS: Ht 142.2 cm; Wt 50.0 kg
[~2021-12-02 21:57] MED LIST changes: +MEDDOSEPAK PO; +OMNICEF300 MG PO
[2021-12-02 23:13] VITALS: BP 185/74
[2021-12-02 23:15] VITALS: BP 174/78
[2021-12-02 23:30] VITALS: BP 187/75
[2021-12-02 23:45] VITALS: BP 202/92
[2021-12-03] VITALS (8 sets, daily range): BP systolic 168–170; BP diastolic 76–80
[2021-12-03 00:22] LABS: HEMATOCRIT 30.2 % (37.0-47.0); IMMATURE GRANULOCYTES 0.3 % (0.0-5.0); MEAN CELL VOLUME 95.9 fL CALC (80.0-100.0); MEAN CORPUSCULAR HGB 31.7 pG CALC (26.0-32.0); MEAN CORPUSCULAR HGB CONC 33.1 g/dL CAL (32.0-36.0); NEUT# 7.17 thou/uL (2.00-7.15); RED BLOOD COUNT 3.15 mill/uL (4.20-5.60); RED CELL DISTRI WIDTH 13.6 % (11.5-15.5)
[2021-12-03 00:35] LABS: POTASSIUM 4.3 mmol/l (3.5-5.1)
[2021-12-03 00:39] LABS: CREATININE 6.5 mg/dL (0.5-1.0)
[2021-12-03] MEDS ORDERED: PROMETHAZINE HY25 M1 PO (01:18)
== END 2021-12-03 01:52 | disposition home or self-care (01) | DRG 391 ==
LOC: ED 21:57
PROVIDERS: Family Medicine
DX: R11.0 Nausea (principal); N18.6 End stage renal disease; E11.22 Type 2 diabetes mellitus with diabetic chronic kidney disease

== ENCOUNTER 2022-03-03 12:20 | Observation (INO) | payer MEDICARE, BC ==
[2022-03-03] VITALS (17 sets, daily range): BP systolic 163–218; BP diastolic 72–120
[~2022-03-03] VITALS: Ht 142.2 cm; Wt 46.0 kg
[~2022-03-03 12:20] MED LIST changes: +PROMETHAZINE HY25 M1 PO
[2022-03-03 14:44] LABS: BASO% 0.6 % (0-3); HEMATOCRIT 33.8 % (37.0-47.0); HEMOGLOBIN 11.2 g/dl (12.0-16.0); IMMATURE GRANULOCYTES 0.1 % (0.0-5.0); LYMPH% 14.2 % (15-41); MEAN CELL VOLUME 93.9 fL CALC (80.0-100.0); MEAN CORPUSCULAR HGB 31.1 pG CALC (26.0-32.0); MEAN CORPUSCULAR HGB CONC 33.1 g/dL CAL (32.0-36.0); MONO% 7.9 % (2-13); NEUT# 5.36 thou/uL (2.00-7.15); NEUT% 77.2 % (42-76); RED BLOOD COUNT 3.6 mill/uL (4.20-5.60); RED CELL DISTRI WIDTH 14.9 % (11.5-15.5)
[2022-03-03 15:08] LABS: BILIRUBIN, TOTAL 0.7 mg/dL (0.0-1.4); POTASSIUM 3.8 mmol/l (3.5-5.1); TOTAL PROTEIN 8.4 g/dL (6.3-8.2)
[2022-03-03 15:17] LABS: ALBUMIN 4.7 g/dL (3.2-5.0); CREATININE 6.1 mg/dL (0.5-1.0)
[2022-03-04] VITALS (8 sets, daily range): BP systolic 153–220; BP diastolic 68–102
[2022-03-04 06:28] LABS: MAGNESIUM 2.2 mg/dL (1.6-2.3)
[2022-03-04] MEDS ORDERED: PROMETHAZINE HY25 M1 (07:30)
[2022-03-05] VITALS (12 sets, daily range): BP systolic 131–186; BP diastolic 56–98
[2022-03-05 05:30] LABS: BASO% 0.5 % (0-3); EOS% 2.2 % (0-8); HEMATOCRIT 29.5 % (37.0-47.0); HEMOGLOBIN 9.9 g/dl (12.0-16.0); IMMATURE GRANULOCYTES 0.3 % (0.0-5.0); LYMPH% 19.9 % (15-41); MEAN CELL VOLUME 96.1 fL CALC (80.0-100.0); MEAN CORPUSCULAR HGB 32.2 pG CALC (26.0-32.0); MEAN CORPUSCULAR HGB CONC 33.6 g/dL CAL (32.0-36.0); MONO% 10.3 % (2-13); NEUT# 4.95 thou/uL (2.00-7.15); NEUT% 66.8 % (42-76); RED BLOOD COUNT 3.07 mill/uL (4.20-5.60); RED CELL DISTRI WIDTH 14.4 % (11.5-15.5)
[2022-03-05 05:48] LABS: ALBUMIN 3.8 g/dL (3.2-5.0); BILIRUBIN, TOTAL 0.5 mg/dL (0.0-1.4); MAGNESIUM 1.9 mg/dL (1.6-2.3); POTASSIUM 3.7 mmol/l (3.5-5.1); TOTAL PROTEIN 6.9 g/dL (6.3-8.2)
[2022-03-05 05:57] LABS: CREATININE 4.1 mg/dL (0.5-1.0)
[2022-03-06 00:27] VITALS: BP 159/59
[2022-03-06 04:14] VITALS: BP 162/59
[2022-03-06 05:55] LABS: ALBUMIN 3.8 g/dL (3.2-5.0); BILIRUBIN, TOTAL 0.4 mg/dL (0.0-1.4); CREATININE 3.7 mg/dL (0.5-1.0); MAGNESIUM 1.7 mg/dL (1.6-2.3); POTASSIUM 3.5 mmol/l (3.5-5.1); TOTAL PROTEIN 6.7 g/dL (6.3-8.2)
[2022-03-06 05:56] LABS: BASO% 0.8 % (0-3); EOS% 5.7 % (0-8); HEMATOCRIT 27.9 % (37.0-47.0); HEMOGLOBIN 9.3 g/dl (12.0-16.0); IMMATURE GRANULOCYTES 0.2 % (0.0-5.0); LYMPH% 21.2 % (15-41); MEAN CELL VOLUME 96.9 fL CALC (80.0-100.0); MEAN CORPUSCULAR HGB 32.3 pG CALC (26.0-32.0); MEAN CORPUSCULAR HGB CONC 33.3 g/dL CAL (32.0-36.0); MONO% 9.8 % (2-13); NEUT# 3.83 thou/uL (2.00-7.15); NEUT% 62.3 % (42-76); RED BLOOD COUNT 2.88 mill/uL (4.20-5.60); RED CELL DISTRI WIDTH 14.1 % (11.5-15.5)
[2022-03-06 06:48] VITALS: BP 169/61
[2022-03-06 09:12] VITALS: BP 180/66
[2022-03-06 10:10] VITALS: BP 158/64
[2022-03-06] MEDS ORDERED: HYDRALAZINE HYD25 MG PO (10:12)
[2022-03-06] MEDS ORDERED: ZITHROMAX250 MG PO (10:13)
[2022-03-06] MEDS ORDERED: VANTIN100 MG PO (10:15)
[2022-03-06 16:13] VITALS: BP 163/66
== END 2022-03-06 16:44 | disposition home health service (06) ==
LOC: ED 12:20 → ED-I 17:50 → ED 18:09 → MS2 18:10
PROVIDERS: Family Medicine; Nurse Practitioner Family; ADMIT Internal Medicine; ATTEND Internal Medicine
PROC: 5A1D70Z Performance of Urinary Filtration, Intermittent, Less than 6 Hours Per Day (ICD-10-PCS; principal; 2022-03-04)
PROC: 5A1D70Z Performance of Urinary Filtration, Intermittent, Less than 6 Hours Per Day (ICD-10-PCS; 2022-03-05)
PROC: 5A1D70Z Performance of Urinary Filtration, Intermittent, Less than 6 Hours Per Day (ICD-10-PCS; 2022-03-06)
DX: J18.9 Pneumonia, unspecified organism (principal); J96.01 Acute respiratory failure with hypoxia; I12.0 Hypertensive chronic kidney disease with stage 5 chronic kidney disease or end stage renal disease; E11.22 Type 2 diabetes mellitus with diabetic chronic kidney disease; N18.6 End stage renal disease; Z99.2 Dependence on renal dialysis; K21.9 Gastro-esophageal reflux disease without esophagitis; E03.9 Hypothyroidism, unspecified; Z86.73 Personal history of transient ischemic attack (TIA), and cerebral infarction without residual deficits; N25.81 Secondary hyperparathyroidism of renal origin; D63.1 Anemia in chronic kidney disease; Z20.822 Contact with and (suspected) exposure to COVID-19
CPT/HCPCS: J1644

== ENCOUNTER 2022-08-15 06:59 | Day surgery (SDC) | payer MEDICARE, BC ==
[~2022-08-15] VITALS: Ht 142.2 cm; Wt 52.2 kg
[~2022-08-15 06:59] MED LIST changes: +HYDRALAZINE HYD25 MG PO; +HYDRALAZINE100 MG PO; +NIFEDIPINE90 M1 PO; +PLAVIX75 MG PO; +PROMETHAZINE HY25 M1; +VANTIN100 MG PO
[2022-08-15 08:00] LABS: CREATININE 3.1 mg/dL (0.5-1.0); POTASSIUM 4.6 mmol/l (3.5-5.1)
[2022-08-15 09:24] VITALS: BP 179/85
== END 2022-08-15 09:22 | disposition home or self-care (01) ==
LOC: ENDO 06:59
PROVIDERS: ATTEND Surgery
PROC: 0DJD8ZZ Inspection of Lower Intestinal Tract, Via Natural or Artificial Opening Endoscopic (ICD-10-PCS; principal; 2022-08-15)
DX: Z12.11 Encounter for screening for malignant neoplasm of colon (principal); K64.8 Other hemorrhoids; N18.6 End stage renal disease; Z99.2 Dependence on renal dialysis; Z76.82 Awaiting organ transplant status

== ENCOUNTER 2023-11-10 12:02 | Emergency (ER) | payer MEDICARE ==
[~2023-11-10] VITALS: Ht 121.9 cm; Wt 63.5 kg
[2023-11-10] VITALS (24 sets, daily range): BP systolic 100–122; BP diastolic 40–97
[~2023-11-10 12:02] MED LIST changes: +BACTRIM DS1 TAB PO; +DIFLUCAN100 MG PO; +DRONABINOL2.5 MG PO; +ENVARSUS XR4 MG; +ERTAPENEM1 G1 IV; +FAMOTIDINE20 M1 PO; +FERROUS SULFAT325 MG PO; +LOKELMA5 GM; +MYFORTIC360 MG PO; +PREDNISONE5 MG PO; +PROCARDIA XL30 MG PO; +SLOW-MAG PO; +TOPROL XL25 M1 PO; +VALTREX500 MG PO
[2023-11-10] MEDS ORDERED: SODIUM CHLORIDE 0.9% 1,000 ML IV ONE ×2 (13:55→19:20)
[2023-11-10 13:56] LABS: URINE BILIRUBIN - DIPSTICK Negative (NEGATIVE); URINE BLOOD DIPSTICK Negative (NEGATIVE); URINE GLUCOSE - DIPSTICK 100 mg/dL (NEGATIVE); URINE KETONE Negative (NEGATIVE); URINE NITRITE - DIPSTICK Negative (Negative); URINE PH 5.5 (4.5-8.0); URINE PROTEIN - DIPSTICK 100 mg/dL (NEG-TRACE); URINE SPECIFIC GRAVITY 1.015; URINE UROBILINOGEN - DIPSTICK 0.2 E.U./dL (0.2)
[2023-11-10 14:07] LABS: URINE COLOR Yellow; URINE LEUK ESTERASE Small (NEGATIVE)
[2023-11-10 14:08] LABS: BASO% 0.2 % (0-3); HEMATOCRIT 35.2 % (37.0-47.0); HEMOGLOBIN 11.7 g/dl (12.0-16.0); LYMPH% 1.6 % (15-41); MEAN CELL VOLUME 94.4 fL CALC (80.0-100.0); MEAN CORPUSCULAR HGB 31.4 pG CALC (26.0-32.0); MEAN CORPUSCULAR HGB CONC 33.2 g/dL CAL (32.0-36.0); MONO% 4.9 % (2-13); NEUT# 19.76 thou/uL (2.00-7.15); NEUT% 82.3 % (42-76); RED BLOOD COUNT 3.73 mill/uL (4.20-5.60); RED CELL DISTRI WIDTH 14.5 % (11.5-15.5)
[2023-11-10 14:08] LABS: URINE BACTERIA FEW hpf; URINE EPITHELIAL CELLS MODERATE EPI/hpf (0-FEW)
[2023-11-10 14:11] LABS: ALBUMIN 3.7 g/dL (3.2-5.0); CREATININE 0.7 mg/dL (0.5-1.0); POTASSIUM 4.9 mmol/l (3.5-5.1); TOTAL PROTEIN 6.7 g/dL (6.3-8.2)
[2023-11-10 14:18] LABS: BILIRUBIN, TOTAL 0.9 mg/dL (0.02-1.3)
[2023-11-10] MEDS ORDERED: INSULIN REGULAR (HUMAN) 100 UNIT/ML INJ IV ONE (19:20)
[2023-11-10] MEDS ORDERED: DEXTROSE 5% IV ONE (20:20)
[2023-11-10] MEDS ORDERED: GENTAMICIN SULFATE IV ONE (20:20)
== END 2023-11-10 22:11 | disposition short-term general hospital (02) ==
LOC: ED 12:02
PROVIDERS: Nurse Practitioner
DX: T86.13 Kidney transplant infection (principal); N12 Tubulo-interstitial nephritis, not specified as acute or chronic; B96.1 Klebsiella pneumoniae [K. pneumoniae] as the cause of diseases classified elsewhere; R91.8 Other nonspecific abnormal finding of lung field; E11.65 Type 2 diabetes mellitus with hyperglycemia; I10 Essential (primary) hypertension; Y83.0 Surgical operation with transplant of whole organ as the cause of abnormal reaction of the patient, or of later complication, without mention of misadventure at the time of the procedure; Z94.0 Kidney transplant status; Z86.73 Personal history of transient ischemic attack (TIA), and cerebral infarction without residual deficits; Z20.822 Contact with and (suspected) exposure to COVID-19
CPT/HCPCS: Q9967